=== PATIENT | female | born 1960 ===

== ENCOUNTER 2018-05-04 18:33 | Emergency (ER) | payer OTHER ==
[~2018-05-04] VITALS: Ht 157.5 cm; Wt 101.2 kg
[~2018-05-04 18:33] MED LIST: CEFP500 PO; HYDHOMSY; IBUP400 PO; PARO20 PO; Sudogest30 MG PO; TEMA15 PO
== END 2018-05-04 19:29 | disposition home or self-care (01) ==
LOC: ER 18:33
DX: S01.01XA Laceration without foreign body of scalp, initial encounter (principal); W01.198A Fall on same level from slipping, tripping and stumbling with subsequent striking against other object, initial encounter; E78.5 Hyperlipidemia, unspecified; G43.909 Migraine, unspecified, not intractable, without status migrainosus; F32.9 Major depressive disorder, single episode, unspecified; E66.9 Obesity, unspecified
CPT/HCPCS: 12002; 90471; 90714; 99282-25